=== PATIENT | female | born 1970 | race Caucasian/White ===

== ENCOUNTER 2021-02-27 14:36 | Emergency (ER) | payer OTHER ==
[~2021-02-27] VITALS: Ht 162.6 cm; Wt 47.2 kg
[~2021-02-27 14:36] MED LIST: HYDROCODONE-APA1 TAB PO; LEVAQUIN750 MG PO
[2021-02-27 18:29] LABS: BASOPHIL 0.5 % (0-2); EOSINOPHIL 1.1 % (0-5); HCT 37.9 % (37.0-47.0); HGB 13.4 g/dl (12.5-16.0); LYMPHOCYTE 20.3 % (15-48); MCH 34.3 pg (25.0-31.0); MCHC 35.4 g/dL (32.0-36.0); MCV 96.9 fL (78.0-100.0); MPV 9.8 fL (6.0-9.5); NEUTROPHIL 71.8 % (41-80); NRBC 0; PLT 227 K/uL (150-400); RBC 3.91 M/uL (4.20-5.40); RDW 13.2 % (11.5-14.0)
[2021-02-27 18:34] LABS: BILIRUBIN 1+ mg/dL (NEGATIVE); BLOOD NEGATIVE Ery/uL (NEGATIVE); COLOR YELLOW (YELLOW); GLUCOSE (U) NORMAL (NORMAL); LEUKOCYTES NEGATIVE Leu/uL (NEGATIVE); NITRITE NEGATIVE (NEGATIVE); PROTEIN TRACE (LOW) mg/dL (NEGATIVE); SPECIFIC GRAVITY >=1.030 (1.001-1.030); UROBILINOGEN 0.2 mg/dL (0.2-1.0); pH 5.5 (5.0-9.0)
[2021-02-27 18:35] LABS: CLARITY SLIGHTLY HAZY (CLEAR)
[2021-02-27 18:49] LABS: ALBUMIN 3.6 g/dL (3.4-5.0); BILIRUBIN - TOTAL 0.8 mg/dL (0.2-1.0); BUN/CREAT RATIO (CALC) 8.8 RATIO; CREATININE 0.57 mg/dL (0.51-0.95); POTASSIUM 3.3 mmol/L (3.5-5.1); TOTAL PROTEIN 7.6 g/dL (6.4-8.2)
[2021-02-27] MEDS ORDERED: OXY-IR 5MG5 MG PO (20:17)
[2021-02-27] MEDS ORDERED: ZOFRAN4 M1 PO (20:17)
== END 2021-02-27 22:15 | disposition home or self-care (01) ==
LOC: FER 14:36
PROVIDERS: Emergency Medicine
DX: K85.90 Acute pancreatitis without necrosis or infection, unspecified (principal); I50.9 Heart failure, unspecified; F17.200 Nicotine dependence, unspecified, uncomplicated; Z88.0 Allergy status to penicillin; Z88.1 Allergy status to other antibiotic agents; Z20.822 Contact with and (suspected) exposure to COVID-19
CPT/HCPCS: 36415; 80053; 81003; 83690; 85025; J1170; J2405; J3475; J3480; J7030; Q9967; U0002

== ENCOUNTER 2021-05-01 10:17 | Inpatient (IN) | payer OTHER ==
[~2021-05-01] VITALS: Ht 162.6 cm; Wt 50.8 kg
[~2021-05-01 10:17] MED LIST changes: +OXY-IR 5MG5 MG PO; +ZOFRAN4 M1 PO
[2021-05-01 11:22] LABS: BASOPHIL 0.5 % (0-2); EOSINOPHIL 0.7 % (0-5); HCT 35.6 % (37.0-47.0); HGB 12.1 g/dl (12.5-16.0); MCH 34.4 pg (25.0-31.0); MCV 101.1 fL (78.0-100.0); MONOCYTE 5.6 % (0-12); MPV 9.6 fL (6.0-9.5); NEUTROPHIL 84.5 % (41-80); NRBC 0; PLT 268 K/uL (150-400); RBC 3.52 M/uL (4.20-5.40); RDW 12.1 % (11.5-14.0); WBC 18.6 K/uL (4.0-10.5)
[2021-05-01 11:38] LABS: BILIRUBIN NEGATIVE (NEGATIVE); BLOOD NEGATIVE Ery/uL (NEGATIVE); CLARITY CLEAR (CLEAR); COLOR YELLOW (YELLOW); GLUCOSE (U) NORMAL (NORMAL); LEUKOCYTES NEGATIVE Leu/uL (NEGATIVE); NITRITE NEGATIVE (NEGATIVE); PROTEIN NEGATIVE (NEGATIVE); SPECIFIC GRAVITY 1.015 (1.001-1.030)
[2021-05-01 11:41] LABS: INR 1.03 (0.9-1.2); LACTIC ACID 0.7 mmol/L (0.4-1.9); PROTHROMBIN TIME 12.9 SECONDS (11.8-13.4); PTT 25.8 SECONDS (24.4-34.7)
[2021-05-01 11:48] LABS: AMPHETAMINES NEGATIVE (NEGATIVE); BARBITURATES NEGATIVE (NEGATIVE); ECSTASY (MDMA) NEGATIVE (NEGATIVE); MARIJUANA (THC) NEGATIVE (NEGATIVE); METHADONE NEGATIVE (NEGATIVE); OPIATES NEGATIVE (NEGATIVE); OXYCODONE NEGATIVE (NEGATIVE)
[2021-05-01 11:59] LABS: ALBUMIN 3.4 g/dL (3.4-5.0); ALKALINE PHOSHATASE 85 U/L (46-116); ALT 23 U/L (14-59); AMYLASE 444 U/L (25-115); AST 34 U/L (15-37); BILIRUBIN - TOTAL 0.2 mg/dL (0.2-1.0); BUN 8 mg/dL (7-18); CHLORIDE 97 mmol/L (98-107); CO2 (BICARBONATE) 28 mmol/L (21-32); GLOBULIN (CALCULATION) 3.5 g/dL; GLUCOSE 105 mg/dL (74-106); LIPASE >2250 U/L (73-393); TOTAL PROTEIN 6.9 g/dL (6.4-8.2)
[2021-05-01] MEDS ORDERED: BUSPIRONE HCL15 MG PO (18:37)
[2021-05-01] MEDS ORDERED: TRAZODONE 50MG50 MG PO (18:37)
[2021-05-01] MEDS ORDERED: LASIX20 MG PO (18:38)
[2021-05-01] MEDS ORDERED: POTASSIUM CHLO10 MEQ PO (18:38)
[2021-05-01] MEDS ORDERED: EFFEXOR XR150 MG PO (18:38)
[2021-05-01] MEDS ORDERED: PHENERGAN25 M1 PO (18:39)
[2021-05-01] MEDS ORDERED: ATARAX25 MG PO (18:40)
[2021-05-01] MEDS ORDERED: PRILOSEC20 MG PO (18:40)
[2021-05-02 07:45] LABS: BASOPHIL 0.2 % (0-2); EOSINOPHIL 1.4 % (0-5); HCT 30.6 % (37.0-47.0); HGB 10.4 g/dl (12.5-16.0); LYMPHOCYTE 9.9 % (15-48); MCH 34.2 pg (25.0-31.0); MCV 100.7 fL (78.0-100.0); MONOCYTE 4.1 % (0-12); MPV 9.4 fL (6.0-9.5); NRBC 0; PLT 178 K/uL (150-400); RBC 3.04 M/uL (4.20-5.40); RDW 11.9 % (11.5-14.0); WBC 12.8 K/uL (4.0-10.5)
[2021-05-02 08:00] LABS: ALBUMIN 2.7 g/dL (3.4-5.0); BILIRUBIN - TOTAL 0.5 mg/dL (0.2-1.0); BUN/CREAT RATIO (CALC) 8.7 RATIO; CREATININE 0.46 mg/dL (0.51-0.95); GLOBULIN (CALCULATION) 3.2 g/dL; MAGNESIUM 1.3 mg/dL (1.8-2.4); POTASSIUM 3.1 mmol/L (3.5-5.1); TOTAL PROTEIN 5.9 g/dL (6.4-8.2)
--- NOTE | 2021-05-02 15:09 | NUR ---
PATIENT HOLLERING OUT, AIDE CAME TO DESK STATED SHE WAS IN THE FLOOR. ENTERED ROOM PATIENT LYING ON RIGHT SIDE CURLED IN A BALL C/O ABD PAIN, STATED SHE WAS TRYING TO THROW UP IN THE GARBAGE AND DON'T KNOW WHAT HAPPENED. ATTEMPT TO CALL BUT NO VOICE MAIL SET UP, DAUGHTER CAME TO ROOM AND CALLED AND INFORMED HIM OF ABOVE ISSUES. SPOKE WITH SISTER ABOUT HISTORY AND INFORMED MD IF WAS THIS POSSIBLE WITHDRAWAL, WILL ASSESS FOR CIWA
--- NOTE | 2021-05-02 15:57 | NUR ---
PATIENT ASSESSED AFTER FALL AND KEPT STATED SHE WANTED OUT OF HERE, PATIENT SHAKING VERY HARD, NO INJURY NOTED, REASSESSED AT THIS TIME TOO, INFORMED FAMILY OF RESULTS OF XRAY OF NO INJURY. AT BEDSIDE. PATIENT MUCH CALMER WITH NO AGITATION NOW. NO AGITATION WHEN ASSESSED AT 1130 & NOON BUT WHEN ASSESSED ON THE FLOOR WAS AGITATED, RETURNED TO BED WAS EXTREMELY SHAKY INVOLUNTARY WHICH HAS NOW RESOLVED SINCE THE ATIVAN. PATIENT CALMER TALKING TO THIS NURSE STATING, "IT'S NOT YOUR FAULT" CIWA PRIOR TO MAX WAS 32, MADE AWARE AND ASSESSED PATIENT AND ORDERED STAT ATIVAN WHICH HAS BEEN EFFECTIVE
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
--- NOTE | 2021-05-02 23:43 | NUR ---
THIS NURSE CALLED PER PT REQ & HAD HIM CALL HER CELL. THIS CALMED HER SOME.
[2021-05-03 06:43] LABS: BASOPHIL 0.4 % (0-2); EOSINOPHIL 1.7 % (0-5); HCT 27.7 % (37.0-47.0); HGB 9.1 g/dl (12.5-16.0); LYMPHOCYTE 10.7 % (15-48); MCHC 32.9 g/dL (32.0-36.0); MCV 103.4 fL (78.0-100.0); MONOCYTE 4.7 % (0-12); MPV 9.9 fL (6.0-9.5); NEUTROPHIL 82.1 % (41-80); NRBC 0; PLT 148 K/uL (150-400); RBC 2.68 M/uL (4.20-5.40); RDW 11.9 % (11.5-14.0); WBC 11.1 K/uL (4.0-10.5)
[2021-05-03 07:18] LABS: BILIRUBIN - TOTAL 0.5 mg/dL (0.2-1.0); BUN/CREAT RATIO (CALC) 7.3 RATIO; CREATININE 0.41 mg/dL (0.51-0.95); GLOBULIN (CALCULATION) 2.9 g/dL; POTASSIUM 3.2 mmol/L (3.5-5.1); TOTAL PROTEIN 4.9 g/dL (6.4-8.2)
[2021-05-04 05:59] LABS: BASOPHIL 0.2 % (0-2); EOSINOPHIL 0.2 % (0-5); HCT 28.5 % (37.0-47.0); HGB 9.5 g/dl (12.5-16.0); LYMPHOCYTE 4.2 % (15-48); MCH 33.7 pg (25.0-31.0); MCHC 33.3 g/dL (32.0-36.0); MCV 101.1 fL (78.0-100.0); MONOCYTE 3.1 % (0-12); MPV 9.9 fL (6.0-9.5); NRBC 0; PLT 161 K/uL (150-400); RBC 2.82 M/uL (4.20-5.40); RDW 11.6 % (11.5-14.0); WBC 14.4 K/uL (4.0-10.5)
[2021-05-04 06:00] LABS: NEUTROPHIL 91.7 % (41-80)
[2021-05-04 06:21] LABS: ALBUMIN 2.3 g/dL (3.4-5.0); ALKALINE PHOSHATASE 85 U/L (46-116); ALT 18 U/L (14-59); AST 37 U/L (15-37); BILIRUBIN - TOTAL 0.8 mg/dL (0.2-1.0); BUN <1 mg/dL (7-18); CHLORIDE 96 mmol/L (98-107); CO2 (BICARBONATE) 30 mmol/L (21-32); CREATININE 0.41 mg/dL (0.51-0.95); GLOBULIN (CALCULATION) 3.4 g/dL; GLUCOSE 68 mg/dL (74-106); LIPASE 244 U/L (73-393); MAGNESIUM 1.3 mg/dL (1.8-2.4); POTASSIUM 3.5 mmol/L (3.5-5.1); TOTAL PROTEIN 5.7 g/dL (6.4-8.2)
--- NOTE | 2021-05-04 18:49 | NUR ---
0925 - CIWA SCORE - N/V 3 TREMOR 6 PAROXYSMAL SWEATS 5 ANXIETY 5 AGITATION 5 FOUNTAIN 1 =24 2 MG PO ATIVAN GIVEN
--- NOTE | 2021-05-04 18:52 | NUR ---
1440 - CIWA - N/V 1 TREMOR 5 PAROXYSMAL SWEATS 6 ANXIETY 4 AGITATION 4 FOUNTAIN 2 =22 2 MG PO ATIVAN
[2021-05-05 05:55] LABS: HGB 8.9 g/dl (12.5-16.0); MCH 34.4 pg (25.0-31.0); MCHC 34.2 g/dL (32.0-36.0); MCV 100.4 fL (78.0-100.0); MPV 9.9 fL (6.0-9.5); RBC 2.59 M/uL (4.20-5.40); RDW 11.5 % (11.5-14.0); WBC 14.6 K/uL (4.0-10.5)
[2021-05-05 06:16] LABS: BUN <1 mg/dL (7-18); CHLORIDE 96 mmol/L (98-107); CO2 (BICARBONATE) 28 mmol/L (21-32); CREATININE 0.41 mg/dL (0.51-0.95); GLUCOSE 58 mg/dL (74-106); POTASSIUM 3.6 mmol/L (3.5-5.1)
[2021-05-05 23:00] LABS: BILIRUBIN 1+ mg/dL (NEGATIVE); BLOOD NEGATIVE Ery/uL (NEGATIVE); CLARITY CLEAR (CLEAR); COLOR YELLOW (YELLOW); GLUCOSE (U) NORMAL (NORMAL); LEUKOCYTES NEGATIVE Leu/uL (NEGATIVE); NITRITE NEGATIVE (NEGATIVE); PROTEIN 2+ mg/dL (NEGATIVE); SPECIFIC GRAVITY 1.015 (1.001-1.030)
[2021-05-05 23:13] LABS: BACTERIA TRACE; URINARY WBC RARE
[2021-05-06 05:19] LABS: HCT 28.6 % (37.0-47.0); HGB 9.7 g/dl (12.5-16.0); MCH 33.6 pg (25.0-31.0); MCHC 33.9 g/dL (32.0-36.0); MPV 10.5 fL (6.0-9.5); RBC 2.89 M/uL (4.20-5.40); RDW 11.3 % (11.5-14.0)
[2021-05-06 05:46] LABS: BUN/CREAT RATIO (CALC) 5.1 RATIO; CREATININE 0.39 mg/dL (0.51-0.95); POTASSIUM 3.7 mmol/L (3.5-5.1)
[2021-05-08 06:52] LABS: HCT 26.5 % (37.0-47.0); MCH 33.7 pg (25.0-31.0); MCV 99.3 fL (78.0-100.0); MPV 10.1 fL (6.0-9.5); RBC 2.67 M/uL (4.20-5.40); RDW 11.5 % (11.5-14.0); WBC 13.2 K/uL (4.0-10.5)
[2021-05-08 07:46] LABS: BUN/CREAT RATIO (CALC) 15.4 RATIO; CREATININE 0.39 mg/dL (0.51-0.95); POTASSIUM 3.4 mmol/L (3.5-5.1)
[2021-05-09 06:52] LABS: BASOPHIL 0.3 % (0-2); EOSINOPHIL 5.7 % (0-5); HCT 29.3 % (37.0-47.0); HGB 9.7 g/dl (12.5-16.0); LYMPHOCYTE 15.2 % (15-48); MCH 33.1 pg (25.0-31.0); MCHC 33.1 g/dL (32.0-36.0); MONOCYTE 2.8 % (0-12); MPV 9.6 fL (6.0-9.5); NEUTROPHIL 75.3 % (41-80); NRBC 0; PLT 285 K/uL (150-400); RBC 2.93 M/uL (4.20-5.40); RDW 11.6 % (11.5-14.0); WBC 14.8 K/uL (4.0-10.5)
[2021-05-09 07:44] LABS: BUN/CREAT RATIO (CALC) 13.5 RATIO; CREATININE 0.52 mg/dL (0.51-0.95); FOLIC ACID (SERUM) 11.7 ng/mL (8.6-58.9)
[2021-05-09 08:07] LABS: IRON % SATURATION 18.6 %SAT (20-50)
--- NOTE | 2021-05-09 23:37 | NUR ---
1105 PT FOUND ON FLOOR IN RESTROOM. URINE ALL OVER FLOOR. PT STATES SHE PEED ON THE FLOOR SHE WAS WALKING TO THE BATHROOM. PT STATES SHE WENT TO GET OFF OF COMMODE AND SLIPPED ON THE URINE IN THE FLOOR AND LANDED ON HER BOTTOM. THIS RN EXAMINED PT NO SIGNS OF SKIN INJURIES AND PT STATES NO COMPLAINTS OF PAIN. BEDSIDE COMMODE PLACED AND PULL UP BRIEF PUT ON PATIENT. PT REFUSED FOR FAMILY TO BE NOTIFIED. DR BOGGS NOTIFIED. PT INSTRUCTED TO CALL OUT TO BE TOILETED. WILL CONTINUE TO BE MONITORED
[2021-05-10] MEDS ORDERED: LASIX20 MG PO (15:54)
[2021-05-10] MEDS ORDERED: CEFDINIR300 MG PO (15:54)
[2021-05-10] MEDS ORDERED: POTASSIUM CHLO10 MEQ PO (15:54)
--- NOTE | 2021-05-10 16:02 | NUR ---
MET WITH PT. GAVE HER INFORMATION REGARDIANG [facility]. ALSO PT IS GETTING O2 FROM [facility]. ADVISED DR. MANN AND TIGRE NURSE OF THE O2.
--- NOTE | 2021-05-10 17:40 | NUR ---
PT D/C TO HOME, D/C PAPERS GIVEN TO PATIENT. OXYGEN SET AT 2 LITER PER N/C. INSTRUCTED PT ON HOW TO USE AND TO TURN OFF. IV REMOVED.
== END 2021-05-10 17:40 | disposition home or self-care (01) | DRG 438 ==
LOC: FER 10:17 → FTCU 14:59 → FMS 14:59 → FTCU 05-02 22:30 → FMS 05-07 11:29 → FTCU 05-07 11:45 → FMS 05-09 14:19
PROVIDERS: Emergency Medicine; Hospitalist; Internal Medicine; ADMIT Allergy & Immunology Allergy
PROC: HZ2ZZZZ Detoxification Services for Substance Abuse Treatment (ICD-10-PCS; principal; 2021-05-01)
DX: K85.20 Alcohol induced acute pancreatitis without necrosis or infection (principal); J18.9 Pneumonia, unspecified organism; J96.01 Acute respiratory failure with hypoxia; F10.231 Alcohol dependence with withdrawal delirium; J44.0 Chronic obstructive pulmonary disease with (acute) lower respiratory infection; J44.1 Chronic obstructive pulmonary disease with (acute) exacerbation; D50.9 Iron deficiency anemia, unspecified; I50.9 Heart failure, unspecified; Z20.822 Contact with and (suspected) exposure to COVID-19; F17.200 Nicotine dependence, unspecified, uncomplicated; F41.9 Anxiety disorder, unspecified; F32.A Depression, unspecified; E16.2 Hypoglycemia, unspecified; E83.42 Hypomagnesemia; E87.6 Hypokalemia; Z98.890 Other specified postprocedural states; Z90.710 Acquired absence of both cervix and uterus; Z88.6 Allergy status to analgesic agent; Z88.1 Allergy status to other antibiotic agents
CPT/HCPCS: 36415; 71045; 71260; 73020; 80048; 80053; 80061; 80305; 81001; 81003; 82150; 82607; 82728; 82746; 83036; 83540; 83550; 83605; 83690; 83735; 83880; 84145; 85025; 85610; 85730; 87040; 93005; G0480; J0456; J0696; J1170; J1200; J1650; J1940; J2060; J2405; J2916; J2920; J3411; J3475; J3480; J7030; J7050; J7120; J7512; Q9967; U0002